=== PATIENT | female | born 1965 | race African-American/Black ===

== ENCOUNTER 2019-01-02 01:26 | Emergency (ER) | payer MEDICARE, OTHER ==
[~2019-01-02] VITALS: Ht 154.9 cm; Wt 136.1 kg
[2019-01-02 01:26] VITALS: BP 129/77
[~2019-01-02 01:26] MED LIST: ALBUTEROL2.5 MG/3 M INH; COLACE100 MG ORAL; DEPAKOTE250 MG PO; DILAUDID2 MG ORAL; DIPHENHYDRAMINE25 M1 ORAL; NORVASC10 MG ORAL; OMEPRAZOLE20 M3 ORAL; QVAR7.3 GM INH; TOPIRAMATE25 MG ORAL
--- NOTE | 2019-01-02 01:26 | NUR ---
ED Nurse Note: Patient brought in by RA from home due to chest pain x1 day. ASA 325mg was given upon arrival as per paramedics. Pt has hx of seizure. Alert and oriented, verbally responsive. No SOB. Breathing even and unlabored. Afebrile. VSS.
[2019-01-02] MEDS ORDERED: HYDROmorphone 1mg/ml Carpuject IVP ONE (01:30)
[2019-01-02] MEDS ORDERED: Mylanta II UD 30ml ORAL ONE (01:30)
--- NOTE | 2019-01-02 01:34 | Emergency Room Report ---
History of Present Illness General Chief Complaint: Chest Pain Source: Patient Present Illness HPI This is a 53-year-old female with history of high blood pressure. Patient presents with complaint of chest pain. Pain is on the right side is been ongoing for 2 to 3 days constantly. She felt her muscle twitching. No fever chills but no nausea no vomiting. Called 911. EMS gave her nitroglycerin and aspirin without any relief. She had the same pain about 2 weeks ago and went to [place]. Work-up was negative. She had an angiogram done at [facility] last year and showed no evidence of any blockage. Nothing made it better. Nothing made it worse. No exertional component. No diaphoresis with no nausea no vomiting. Pain is 8 out of 10. Allergies: Coded Allergies: CEPHALEXIN (Unverified Allergy, Unknown, 01/02/19) CODEINE (Unverified Allergy, Unknown, 01/02/19) ERYTHROMYCIN BASE (Unverified Allergy, Unknown, 01/02/19) IBUPROFEN (Verified Allergy, Unknown, 10/13/15) MORPHINE (Unverified Allergy, Unknown, 01/02/19) PENICILLINS (Verified Allergy, Unknown, 10/13/15) SULFA (SULFONAMIDE ANTIBIOTICS) (Unverified Allergy, Unknown, 01/02/19) SULFUR DIOXIDE (Verified Allergy, Unknown, 10/13/15) Uncoded Allergies: CODINE (Allergy, Unknown, 10/13/15) ERYTHROMYCIN (Allergy, Unknown, 10/13/15) Patient History Past Medical History: see triage record, old chart reviewed, HTN Past Surgical History: other Pertinent Family History: none Social History: Denies: smoking Now: No Immunizations: other Reviewed Nursing Documentation: PMH: Agreed; PSxH: Agreed Nursing Documentation-PMH Past Medical History: No History, Except For Hx Cardiac Problems: Yes Hx Hypertension: Yes Hx Asthma: Yes Hx Diabetes: Yes Hx Cancer: No Hx Gastrointestinal Problems: Yes Hx Neurological Problems: Yes Hx Seizures: Yes Review of Systems Eye: Denies: eye pain, blurred vision ENT: Denies: ear pain, nose congestion, throat swelling Respiratory: Denies: cough, shortness of breath Cardiovascular: Reports: chest pain; Denies: palpitations Gastrointestinal: Denies: abdominal pain, diarrhea, nausea, vomiting Musculoskeletal: Denies: back pain, joint pain Skin: Denies: rash Neurological: Denies: headache, numbness Endocrine: Denies: increased thirst, increased urine Hematologic/Lymphatic: Denies: easy bruising All Other Systems: negative except mentioned in HPI Physical Exam Vital Signs Date Time Temp Pulse Resp B/P (MAP) Pulse Ox O2 Delivery O2 Flow Rate FiO2 01/02/19 01:20 98.1 77 16 129/77 (94) 97 Room Air vitals stable Sp02 EP Interpretation: reviewed, normal General Appearance: well appearing, no apparent distress, alert, obese Head: normocephalic, atraumatic Eyes: bilateral eye PERRL, bilateral eye EOMI ENT: hearing grossly normal, normal pharynx Neck: full range of motion, supple, no meningismus Respiratory: chest non-tender, lungs clear, normal breath sounds Cardiovascular #1: regular rate, rhythm, no murmur Gastrointestinal: normal bowel sounds, non tender, no mass, no organomegaly, no bruit, non-distended Musculoskeletal: back normal, gait/station normal, normal range of motion Psychiatric: mood/affect normal Medical Decision Making Diagnostic Impression: Primary Impression: Chest pain Qualified Codes: R07.9 - Chest pain, unspecified ER Course Patient presents with atypical chest pain. I see no evidence of ACS, PE, dissection to name a few. She has multiple work-up done already. She had a negative angiogram at [facility] last year. She has echocardiogram that unremarkable in November at [place]. She has been to multiple hospital for the same thing. She is currently taking Zantac. She said she was on omeprazole before and that was a better for her reflux. I suspect this may be a GI issue. So be costochondritis, anxiety to name a few. EKG Diagnostic Results Rate: normal Rhythm: NSR ST Segments: no acute changes Rhythm Strip Diag. Results EP Interpretation: yes Rate: 76 Rhythm: NSR, no PVC's, no ectopy Chest X-Ray Diagnostic Results Chest X-Ray Diagnostic Results : Chest X-Ray Ordered: Yes # of Views/Limited/Complete: 1 View Indication: Chest Pain EP Interpretation: Yes Interpretation: no consolidation, no effusion, no pneumothorax, other - Cardiomegaly Impression: No acute disease Electronically Signed by: Sid Ackerman MD Last Vital Signs Date Time Temp Pulse Resp B/P (MAP) Pulse Ox O2 Delivery O2 Flow Rate FiO2 01/02/19 01:20 98.1 77 16 129/77 94 97 Room Air Status: improved Disposition: HOME, SELF-CARE Condition: Stable Scripts Omeprazole Magnesium (PRILOSEC OTC) 20 Mg Tablet. 20 MG ORAL DAILY, #30 TAB Prov: Sid Ackerman MD 01/02/19 Patient Instructions: Nonspecific Chest Pain Additional Instructions: Stop your ranitidine. Take omeprazole instead. Follow-up with your doctor in 7 days. Return if symptoms worsen. Sid Ackerman MD Jan 02, 2019 01:34
--- NOTE | 2019-01-02 01:50 | NUR ---
ED Nurse Note: Blood and urine collected and sent to lab.
[2019-01-02 02:03] LABS: HEMATOCRIT 42.4 % (37.0-47.0); HEMOGLOBIN 13.3 G/DL (12.0-16.0); MEAN CORPUSCULAR VOLUME 87 FL (80-99); PLATELET COUNT 133 K/UL (150-450); RED BLOOD COUNT 4.85 M/UL (4.20-5.40); RED CELL DISTRIBUTION WIDTH 15.5 % (11.6-14.8); WHITE BLOOD COUNT 7.2 K/UL (4.8-10.8)
--- NOTE | 2019-01-02 02:04 | NUR ---
ED Nurse Note: Xray done at bedside.
[2019-01-02 02:11] LABS: ANION GAP 7 mmol/L (5-15); BLOOD UREA NITROGEN 15 mg/dL (7-18); CALCIUM 9.4 MG/DL (8.5-10.1); CARBON DIOXIDE 31 MMOL/L (21-32); CHLORIDE 106 MMOL/L (98-107); CREATININE 0.7 MG/DL (0.55-1.30); POTASSIUM 4.1 MMOL/L (3.5-5.1); SODIUM 143 MMOL/L (136-145)
[2019-01-02 02:17] LABS: ALANINE AMINOTRANSFERASE 36 U/L (12-78); ALBUMIN 3.7 G/DL (3.4-5.0); ALBUMIN/GLOBULIN RATIO 0.9 (1.0-2.7); ALKALINE PHOSPHATASE 122 U/L (46-116); ASPARTATE AMINO TRANSFERASE 20 U/L (15-37); BILIRUBIN,TOTAL 0.3 MG/DL (0.2-1.0)
[2019-01-02] MEDS ORDERED: PRILOSEC OTC20 MG ORAL (03:14)
[2019-01-02 03:34] VITALS: BP 131/72
--- NOTE | 2019-01-02 03:34 | NUR ---
ED Nurse Note: Pt cleared by ERMD for discharge. DC instructions/prescription was given and explained to pt and verbalized understanding of teachings. All medical deviecs such as ID band and Iv line removed. Pt is AAO x4, ambulatory and left with all personal belongings. Taxi voucher provided.
--- NOTE | 2019-01-02 12:25 | Diagnostic Imaging Report ---
Indication: Chest pain Comparison: 11/12/2018 A single view chest radiograph was obtained. Findings: Cardiac size is prominent. The lungs are clear. Pulmonary vascularity is appropriate. The diaphragmatic contour is smooth and costophrenic angles are sharp. No pleural effusions are identified. The bones are unremarkable. Impression: No acute findings. Cardiomegaly
--- NOTE | 2019-01-02 14:19 | Cardiology Report ---
APPROVED REPORT EKG Measurement Heart [id number] HI [id number] Normal sinus rhythm Possible Left atrial enlargement Left axis deviation Abnormal ECG
== END 2019-01-02 03:34 | disposition home or self-care (01) ==
LOC: EDBD 01:26 → EMR 01:45
DX: R07.9 Chest pain, unspecified (principal); J45.909 Unspecified asthma, uncomplicated; E11.9 Type 2 diabetes mellitus without complications; I10 Essential (primary) hypertension; Z88.1 Allergy status to other antibiotic agents; Z88.6 Allergy status to analgesic agent; Z88.2 Allergy status to sulfonamides; Z98.61 Coronary angioplasty status
CPT/HCPCS: 36415; 71045; 80053; 84484; 85025; 93005; 96374; 96375; 99284; J1170; J2405